=== PATIENT | male | born 1990 | race Hispanic/Latino ===

== ENCOUNTER 2019-07-05 09:46 | Emergency (ER) | payer SELFPAY ==
[~2019-07-05 09:46] MED LIST: Iopamidol 370 76% 100 ML VIAL ONE
[2019-07-05 10:32] LABS: #Basophils 0.1 thou/uL (0.0-0.2); #Eosinphils 0.1 thou/uL (0.0-0.7); #Monocytes 0.9 thou/uL (0.11-0.59); #Neutrophils 11.9 thou/uL (1.40-6.50); %Basophils 0.6 % (0.0-1.0); %Eosinophils 0.9 % (0.0-10.0); %Monocytes 6.2 % (0.0-10.0); %Neutrophils 85.4 % (42.0-75.0); Hemoglobin 15.5 g/dL (14.0-18.0); Mean Corpuscular Hemoglobin 28.5 pg (27.0-31.0); Mean Corpuscular Volume 86.4 fL (78.0-98.0); Mean Platelet Volume 8.8 fL (7.4-10.4); Platelet Count 212 thou/uL (130-400); RBC Distribution Width 13.2 % (11.5-14.5); Red Blood Cell (RBC) Count 5.45 mill/uL (4.70-6.10); White Blood Cell (WBC) Count 13.9 thou/uL (4.8-10.8)
[2019-07-05 10:51] LABS: ALT (SGPT) 119 U/L (8-55); AST (SGOT) 112 U/L (5-34); Albumin 4.4 g/dL (3.5-5.0); Alkaline Phosphatase 73 U/L (40-110); Anion Gap 15 mmol/L (10-20); BUN (Urea Nitrogen) 13 mg/dL (8.9-20.6); Bilirubin, Total 0.4 mg/dL (0.2-1.2); Calc. Creatinine Clearance 0 mL/min (70-130); Calcium 9.6 mg/dL (7.8-10.44); Carbon Dioxide 23 mmol/L (22-29); Chloride 106 mmol/L (98-107); Estimated GFR-MDRD 88; Globulin 3.3 g/dL (2.4-3.5); Glucose 103 mg/dL (70-105); Potassium 3.7 mmol/L (3.5-5.1); Protein, Total 7.7 g/dL (6.0-8.3); Sodium 140 mmol/L (136-145)
--- NOTE | 2019-07-05 10:55 | CT ---
EXAM: CT of the cervical spine without contrast HISTORY: Fall from a roof with neck pain COMPARISON: None TECHNIQUE: Multiple contiguous axial images were obtained in a CT of the cervical spine without contr ast. Sagittal and coronal reformats were performed. FINDINGS: The vertebral bodies and intervertebral discs demonstrate normal height and alignment witho ut fracture or subluxation. No degenerative changes are present. No prevertebral soft tissue swelling is seen. The posterior facets are well aligned. Normal alignment of the skull base with the cervical spine is seen. The lung apices and cervical soft tissues are unremarkable. IMPRESSION: No evidence of acute osseous abnormality of the cervical spine.
--- NOTE | 2019-07-05 11:24 | CT ---
CT lumbar spine without contrast: HISTORY: Low back pain after falling off a roof. COMPARISON: CT abdomen and pelvis on 01/01/2016 FINDINGS: Contrast is seen in the renal collecting systems bilaterally related to recent contrasted exam. Retro peritoneal structures otherwise demonstrate a grossly normal in CT appearance. Minimally fractures are seen involving the right transverse processes of the L2 and L3 vert ebral bodies with a nondisplaced transverse process fracture on the right involving the L4 vertebral body. No additional fracture is seen. Bilateral pars defects are seen at L5 without anterol isthesis. This was also present on prior exam. No significant paravertebral soft tissue swelling or hematoma is appreciated; although, the fat plane s posterior to the right psoas muscle are less well delineated at the level of the transverse process fractures. L1-2: There is a minimal disc osteophyte complex, but the central spinal canal and neural foramina ar e patent. L2-3: No significant central canal or neural foraminal narrowing is seen. L3-4: No significant central canal or neural foraminal narrowing is seen. L4-5: There is slight loss of intervertebral disc height. There is a minimal disc osteophyte complex with slight effacement of the ventral aspect of thecal sac. The neural foramina are patent. L5-S1: There is a minimal disc osteophyte complex present. This does not result in significant narrow ing of the central spinal canal, but there is minimal bilateral neural foraminal narrowing. IMPRESSION: 1. Fractures involving the right-sided transverse processes of the L2, L3, and L4 vertebral bodies. T here is no vertebral body height loss or subluxation seen. 2. Stable spondylolysis L5-S1 level.
[2019-07-05] MEDS ORDERED: Ondansetron PF 4 MG/2 ML Vial ONE (11:33)
[2019-07-05] MEDS ORDERED: Morphine 4 MG/ML VIAL ONE (11:33)
--- NOTE | 2019-07-05 11:34 | CT ---
EXAM: CT of the chest with IV contrast CT of the abdomen and pelvis with IV contrast HISTORY: Right lateral lumbar pain as well as mid sternal chest pain after falling off of a roof. COMPARISON: 01/01/2016 FINDINGS: CT CHEST: Mediastinum: Heart is normal in size without focal cardiac abnormality. No hilar or mediastinal lymph adenopathy. No mediastinal hemorrhage. Vessels: There are no findings to suggest an aortic injury. Lungs: Dependent atelectasis is seen bilaterally. No consolidation or pulmonary nodule is seen.. Pleural space: No pneumothorax or pleural effusion. Osseous structures: No evidence of acute fracture. Chest wall: Within normal limits. CT ABDOMEN/PELVIS: Liver: Within normal limits. Gallbladder: Within normal limits for CT appearance. Spleen: Within normal limits. Pancreas: Within normal limits. Adrenal glands: Within normal limits. Kidneys: Within normal limits. Urinary bladder: Within normal limits. Vessels: Abdominal aorta is normal in caliber without evidence of an aortic injury. Pelvis: No focal mass or abnormality. Reproductive organs: Within normal limits for the patient's age. Peritoneum: No free air or free fluid. Retroperitoneum: No lymphadenopathy. Osseous structures: There are minimally right transverse process fractures of the L2 and L3 vertebral bodies with nondisplaced right transverse process fracture of the L4 vertebral body. No additional fracture is seen involving the chest, abdomen, or pelvis. There are bilateral pars defects at L5 without anterolisthesis. Abdominal wall: There is subcutaneous soft tissue swelling seen in the right posterolateral and poste rior right gluteal region as well as seen posterior to the right ischium. There has been no other interval change when compared to the prior exam. IMPRESSION: 1. Fractures involving the right transverse processes of the L2, L3, and L4 vertebral bodies with sub cutaneous soft tissue swelling in the right posterolateral gluteal region. 2. There are otherwise no acute findings seen in the chest, abdomen, or pelvis.
[2019-07-05 11:36] LABS: Bilirubin Negative (Negative); Blood, Urine Small (Negative); Clarity Clear (Clear); Glucose, Urine (Dipstick) Negative (Negative); Leukocyte Negative (Negative); Nitrite Negative (Negative); Protein, Urine (Dipstick) 30 mg/dL (Neg-Trace); Urobilinogen 0.2 mg/dL (Less than 2)
[2019-07-05 11:42] LABS: Bacteria/HPF Rare-Few HPF (None Seen); Squamous Epithelial None Seen HPF (0-3); WBC/HPF None Seen HPF (0-3)
--- NOTE | 2019-07-05 11:44 | CT ---
HEAD CT NONCONTRAST: Date: 07/05/19 INDICATION: Fall with loss of consciousness. FINDINGS: There is no acute intracranial hemorrhage, mass effect, midline shift, or ventriculomegaly. Calvarium is intact. No acute fluid level of the imaged paranasal sinuses. There is mild retention cyst format ion seen within the frontal sinus. IMPRESSION: No acute intracranial hemorrhage or mass effect. POS: [facility]
== END 2019-07-05 12:37 | disposition home or self-care (01) ==
LOC: SCSER 09:46
DX: S32.029A Unspecified fracture of second lumbar vertebra, initial encounter for closed fracture (principal); S32.039A Unspecified fracture of third lumbar vertebra, initial encounter for closed fracture; S32.049A Unspecified fracture of fourth lumbar vertebra, initial encounter for closed fracture; R31.29 Other microscopic hematuria; F17.210 Nicotine dependence, cigarettes, uncomplicated; W18.30XA Fall on same level, unspecified, initial encounter
CPT/HCPCS: 70450; 71260; 72125; 72131; 74177; 80053; 81003; 81015; 84484; 85025; 93005; 96374; 96375; J2270; J2405; Q9967

== ENCOUNTER 2021-01-07 20:53 | Emergency (ER) | payer SELFPAY ==
[2021-01-07] MEDS ORDERED: Lidocaine 2% PF 5 ML VIAL ONE (21:47)
[2021-01-07] MEDS ORDERED: Lidocaine 1% PF 5 ML VIAL ONE (21:48)
[2021-01-07] MEDS ORDERED: Boostrix 0.5 ML (Tdap) VIAL ONE (22:13)
[2021-01-07] MEDS ORDERED: Bacitracin 1 PK ONE (22:16)
== END 2021-01-07 23:03 | disposition home or self-care (01) ==
LOC: ERS 20:53
DX: S61.211A Laceration without foreign body of left index finger without damage to nail, initial encounter (principal); F17.210 Nicotine dependence, cigarettes, uncomplicated; W26.9XXA Contact with unspecified sharp object(s), initial encounter
CPT/HCPCS: 12001; 90471; 90715; J2001